=== PATIENT | male | born 1990 | race Two or more races ===

== ENCOUNTER 2018-11-21 19:16 | Emergency (ER) | payer SELFPAY ==
--- NOTE | 2018-11-21 19:52 | ER Document Report ---
ED Medical Screen (RME) - General Chief Complaint: Bloody Stools Stated Complaint: BLOOD IN URINE,BLOOD IN STOOLS Time Seen by Provider: 11/21/18 19:48 - HPI Notes: 11/21/18 19:51 Patient is a 28-year-old male with a history of type 2 diabetes who presents complaining of mid abdominal pain with blood in his urine and red blood in his stool that started few hours ago. No fever or other recent illness. This is not happened before. I have treated and performed a rapid initial assessment of this patient. A comprehensive ED assessment and evaluation of the patient, analysis of test results and completion of medical decision making process will be conducted by additional ED providers. PHYSICAL EXAMINATION: GENERAL: Well-appearing, well-nourished and in no acute distress. A&Ox4. Answers questions appropriately. Physical Exam - Vital signs Vitals: Temp Pulse Resp BP Pulse Ox 98.4 F 101 H 16 123/44 L 99 11/21/18 19:40 11/21/18 19:40 11/21/18 19:40 11/21/18 19:40 11/21/18 19:40 Course - Vital Signs Vital signs: Temp Pulse Resp BP Pulse Ox 98.4 F 101 H 16 123/44 L 99 11/21/18 19:40 11/21/18 19:40 11/21/18 19:40 11/21/18 19:40 11/21/18 19:40
--- NOTE | 2018-11-21 20:22 | ER Document Report ---
ED General - General Chief Complaint: Bloody Stools Stated Complaint: BLOOD IN URINE,BLOOD IN STOOLS Time Seen by Provider: 11/21/18 19:48 Mode of Arrival: Ambulatory Information source: Patient Notes: 28-year-old male with history of diabetes who takes metformin presents the emergency department with reports that he started having abdominal pain a few hours ago. He reports when he voided he noted blood in his urine he also reports that he had one stool and noted blood in the stool. He reports that he drank some apple juice and he vomited and noted blood in the vomit. Patient reports he felt fine all day until this afternoon. Reports he was eating drinking without problems. Patient reports he does smoke but denies alcohol or drugs. Reports last time he drank alcohol was 1 year ago. Denies history of GI bleeds. Reports he had a kidney infection 2 years ago. Denies fever. Denies trauma. TRAVEL OUTSIDE OF THE [place] IN LAST 30 DAYS: No - HPI Onset: Just prior to arrival Onset/Duration: Sudden Quality of pain: Achy Associated symptoms: None Exacerbated by: Denies Relieved by: Denies Similar symptoms previously: No Recently seen / treated by doctor: No Past Medical History - General Information source: Patient - Social History Smoking Status: Current Every Day Smoker Cigarette use (# per day): Yes Frequency of alcohol use: None Drug Abuse: None Family History: None Patient has suicidal ideation: No Patient has homicidal ideation: No Endocrine Medical History: Reports: Hx Diabetes Mellitus Type 2 GI Medical History: Reports: Hx Ulcer Surgical Hx: Negative Review of Systems - Review of Systems Notes: Review HPI for review of systems., All other systems negative Physical Exam - Vital signs Vitals: Temp Pulse Resp BP Pulse Ox 98.4 F 101 H 16 123/44 L 99 11/21/18 19:40 11/21/18 19:40 11/21/18 19:40 11/21/18 19:40 11/21/18 19:40 - General General appearance: Appears well, Alert In distress: None - HEENT Head: Normocephalic Eyes: Normal Conjunctiva: Normal Extraocular movements intact: Yes Pupils: PERRL Ears: Normal External canal: Normal - Be in the senior Tympanic membrane: Normal Mucous membranes: Moist Pharynx: Normal. No: Erythema Neck: Normal, Supple. No: Lymphadenopathy - Continue to stay with me all day - Respiratory Respiratory status: No respiratory distress - I just Chest status: Nontender Breath sounds: Normal Chest palpation: Normal - Cardiovascular Rhythm: Regular Heart sounds: Normal auscultation Murmur: No - Abdominal Inspection: Normal Distension: No distension Bowel sounds: Normal Tenderness: Tender - Periumbilical Organomegaly: No organomegaly - Rectal Tenderness: Yes Stool: Heme negative Hemorrhoids: None - Back Back: Normal, Nontender - Extremities General upper extremity: Normal ROM, Normal strength General lower extremity: Normal ROM, Normal strength, Normal weight bearing - Neurological Neuro grossly intact: Yes Cognition: Normal Orientation: AAOx4 Amanda Coma Scale Eye Opening: Spontaneous Amanda Coma Scale Verbal: Oriented Amanda Coma Scale Motor: Obeys Commands Amanda Coma Scale Total: 15 Speech: Normal Motor strength normal: LUE, RUE, LLE, RLE - Psychological Associated symptoms: Normal affect, Normal mood - Skin Skin Temperature: Warm Skin Moisture: Dry Skin Color: Normal Course - Re-evaluation Re-evalutation: 11/21/18 20:28 28-year-old male who presents emergency department with complaints of hematuria vomiting blood and blood in his diarrhea. Reports that happened once today this afternoon. He reports he felt fine all day he was eating and drinking as normal. Reports this never happened to him before. Does have a history of diabetes for which he takes metformin. 11/21/18 20:39 Rectal negative for blood no hemorrhoids noted 11/21/18 21:11 Labs unremarkable patient has not vomited or had a stool since arrival, no hematuria. Patient was informed of all results instructed to follow-up with his primary care provider for full physical. At this point patient remembers he has history of ulcers. He was instructed to follow-up with GI. He was also instructed to avoid acid foods and he was instructed to return the emergency department for concerns. He verbalized understanding to all instructions. 11/21/18 20:15 11/21/18 20:15 MCV 83 fl (80-97) 11/21/18 20:15 MCH 29.4 pg (27.0-33.4) 11/21/18 20:15 MCHC 35.4 g/dL (32.0-36.0) 11/21/18 20:15 RDW 13.5 % (11.5-14.0) 11/21/18 20:15 Seg Neutrophils % 61.4 % (42-78) 11/21/18 20:15 Chloride 101 mmol/L (98-107) 11/21/18 20:15 Carbon Dioxide 29 mmol/L (22-30) 11/21/18 20:15 Anion Gap 8 (5-19) 11/21/18 20:15 Est GFR ( Amer) > 60 (>60) 11/21/18 20:15 Glucose 80 mg/dL (75-110) 11/21/18 20:15 Calcium 9.8 mg/dL (8.4-10.2) 11/21/18 20:15 Total Bilirubin 2.7 mg/dL (0.2-1.3) H 11/21/18 20:15 AST 32 U/L (17-59) 11/21/18 20:15 Alkaline Phosphatase 76 U/L (38-126) 11/21/18 20:15 Total Protein 7.6 g/dL (6.3-8.2) 11/21/18 20:15 Albumin 4.6 g/dL (3.5-5.0) 11/21/18 20:15 Lipase 104.4 U/L (23-300) 11/21/18 20:15 Urine Color YELLOW 11/21/18 20:15 Urine Appearance CLEAR 11/21/18 20:15 Urine pH 6.0 (5.0-9.0) 11/21/18 20:15 Ur Specific [place] 1.023 11/21/18 20:15 Urine Protein NEGATIVE mg/dL (NEGATIVE) 11/21/18 20:15 Urine Glucose (UA) NEGATIVE mg/dL (NEGATIVE) 11/21/18 20:15 Urine Ketones 80 mg/dL (NEGATIVE) H 11/21/18 20:15 Urine Blood NEGATIVE (NEGATIVE) 11/21/18 20:15 Urine RBC (Auto) 1 /HPF 11/21/18 20:15 Blood Type O POSITIVE 11/21/18 20:15 Antibody Screen NEGATIVE 11/21/18 20:15 11/21/18 21:14 - Vital Signs Vital signs: Temp Pulse Resp BP Pulse Ox 98.5 F 74 14 127/52 H 100 11/21/18 21:32 11/21/18 21:32 11/21/18 21:32 11/21/18 21:32 11/21/18 21:32 - Laboratory Result Diagrams: 11/21/18 20:15 11/21/18 20:15 Laboratory results interpreted by me: 11/21/18 11/21/18 11/21/18 20:15 20:15 20:15 RBC 5.58 H Total Bilirubin 2.7 H Urine Ketones 80 H Urine Urobilinogen 2.0 H Discharge - Discharge Clinical Impression: Abdominal pain Qualifiers: Abdominal location: unspecified location Qualified Code(s): R10.9 - Unspecified abdominal pain Condition: Stable Disposition: HOME, SELF-CARE Instructions: Abdominal Pain ([facility]), Gastroenterology Additional Instructions: *You have been evaluated for abdominal pain, history of ulcers *Your work-up today was completely normal *Follow up with a primary care provider or maintenance helper within 1 week *Monitor your diet avoid spicy acidy foods *Return to ED for worsening condition, changes, needs *Return to ED if not better in 24 hours
[2018-11-21 20:28] LABS: ABSOLUTE BASOPHILS # (AUTO) 0.1 10^3/uL (0.0-0.2); ABSOLUTE EOSINOPHILS # (AUTO) 0.1 10^3/uL (0.0-0.6); ABSOLUTE MONOCYTES (AUTO) 0.7 10^3/uL (0.1-1.4); ABSOLUTE NEUT (AUTO) 4.6 10^3/uL (1.7-8.2); BASOPHILS % (AUTO) 0.8 % (0-2); EOSINOPHILS % (AUTO) 1.5 % (0-6); HEMATOCRIT 46.3 % (37.9-51.0); HEMOGLOBIN 16.4 g/dL (13.5-17.0); LYMPHOCYTES % (AUTO) 27.2 % (13-45); MEAN CORPUSCULAR HEMOGLOBIN 29.4 pg (27.0-33.4); MEAN CORPUSCULAR HGB CONC 35.4 g/dL (32.0-36.0); MEAN CORPUSCULAR VOLUME 83 fl (80-97); MONOCYTES % (AUTO) 9.1 % (3-13); PLATELET COUNT 222 10^3/uL (150-450); RED BLOOD COUNT 5.58 10^6/uL (4.35-5.55); RED CELL DISTRIBUTION WIDTH 13.5 % (11.5-14.0); SEGMENTED NEUTROPHILS % (AUTO) 61.4 % (42-78); TOTAL CELLS COUNTED % (AUTO) 100 %; WHITE BLOOD COUNT 7.5 10^3/uL (4.0-10.5)
[2018-11-21 20:31] LABS: APPEARANCE,URINE CLEAR; BILIRUBIN,URINE NEGATIVE (NEGATIVE); COLOR,URINE YELLOW; GLUCOSE, URINE NEGATIVE (NEGATIVE); KETONES,URINE 80 mg/dL (NEGATIVE); PROTEIN,URINE NEGATIVE (NEGATIVE); URINE SPECIFIC GRAVITY 1.023
[2018-11-21 20:43] LABS: ALBUMIN 4.6 g/dL (3.5-5.0); ALKALINE PHOSPHATASE 76 U/L (38-126); ANION GAP 8 (5-19); ASPARTATE AMINO TRANSFERASE 32 U/L (17-59); BILIRUBIN,DIRECT 0.1 mg/dL (0.0-0.4); BILIRUBIN,TOTAL 2.7 mg/dL (0.2-1.3); BLOOD UREA NITROGEN 14 mg/dL (7-20); CALCIUM 9.8 mg/dL (8.4-10.2); CARBON DIOXIDE 29 mmol/L (22-30); CHLORIDE 101 mmol/L (98-107); GLUCOSE 80 mg/dL (75-110); POTASSIUM 4.4 mmol/L (3.6-5.0); TOTAL PROTEIN 7.6 g/dL (6.3-8.2)
[2018-11-21 21:34] VITALS: BP 127/52
== END 2018-11-21 21:32 | disposition home or self-care (01) ==
LOC: ER 19:16
DX: K92.1 Melena (principal); R10.9 Unspecified abdominal pain; F17.210 Nicotine dependence, cigarettes, uncomplicated; E11.9 Type 2 diabetes mellitus without complications
CPT/HCPCS: 36415; 80053; 81001; 83690; 85025; 86850; 86900; 86901; 99284